=== PATIENT | female | born 1975 | race Caucasian/White ===

== ENCOUNTER 2016-07-12 19:00 | Emergency (ER) | payer MEDICAID ==
[~2016-07-12] VITALS: Ht 157.5 cm; Wt 126.1 kg
[~2016-07-12 19:00] MED LIST: CITA10TA7 PO; LISI-621 PO; METH-310 PO; METO50TA5 PO; PRED10TA PO; RANI150T7 PO
--- OUTSIDE RECORDS SUMMARY | 2016-07-12 19:03 | XMS REPORT | Referral Summary ---
Author Author [facility] Organization [facility]ay[facility]THERON [facility] Address Unknown Phone Unavailable Care Team Providers Care Black Off Worker Name Role Phone Carlos Kearns Primary Care Physician [phone] Encounter VC Date(s): 05/09/16 - 05/09/16 [facility] [address] [place] [id number]- Discharge Diagnosis: Conjunctivitis Discharge Disposition: 01-Home or Self Care Attending Physician: Steve Kearns MD Admitting Physician: Steve Kearns MD Vital Signs Most recent to 1 oldest [Reference Range]: Temperature Tympanic 36.8 degC [36.6-38.1 degC] (05/09/16 11:48 AM) Peripheral Pulse 80 bpm Rate [60-100 bpm] (05/09/16 11:48 AM) Respiratory Rate 18 br/min [14-20 br/min] (05/09/16 11:48 AM) Blood Pressure 134/70 mmHg [90-140/60-90 mmHg] (05/09/16 11:48 AM) SpO2 96 % (05/09/16 11:48 AM) Problem List Condition Effective Dates Status Health Status Informant Adult-onset Active obesity(Confirmed) Hematuria(Confirmed) Active Chronic low back Active pain(Confirmed) GERD Active (gastroesophageal reflux disease)(Confirmed) Diabetes, Resolved gestational(Confirme d) Hand pain, Active left(Confirmed) IV drug Active abuse(Confirmed) Mild major Active depression(Confirmed ) Patient is a Active currently breast-feeding mother(Confirmed) Elevated Resolved BP(Confirmed) Snoring(Confirmed) Active Tobacco Active patient user(Confirmed) Allergies, Adverse Reactions, Alerts No Known Allergies Medications albuterol CFC free 90 mcg/inh inhalation aerosol 2 puffs, Inhalation, q4hr, as needed for wheezing, # 8.5 g, 0 Refill(s), Pharmacy: [facility] [id number] Start Date: 04/26/16 Status: Ordered citalopram 10 mg oral tablet See Instructions, TAKE ONE TABLET BY MOUTH ONCE DAILY, # 30 tabs, 5 Refill(s), eRx: [facility] 2428 Start Date: 04/04/16 Status: Ordered lisinopril 20 mg oral tablet See Instructions, TAKE ONE TABLET BY MOUTH ONCE DAILY, # 30 tabs, 5 Refill(s), eRx: [facility] 2428 Start Date: 04/04/16 Status: Ordered Metoprolol Tartrate 50 mg oral tablet See Instructions, TAKE ONE TABLET BY MOUTH TWICE DAILY, # 60 tabs, 5 Refill(s), eRx: [facility] 2428 Start Date: 04/04/16 Status: Ordered Mirena 52 mg intrauteral device 52 mg 1 Each, IntraUteral, Once, # 1 Each, 0 Refill(s) Start Date: 01/20/15 Status: Ordered omeprazole 20 mg oral delayed release capsule See Instructions, TAKE ONE CAPSULE BY MOUTH ONCE DAILY, # 90 caps, 1 Refill(s), Pharmacy: [facility] [id number], TAKE ONE CAPSULE BY MOUTH ONCE DAILY Start Date: 04/26/16 Status: Ordered raNITIdine 150 mg oral tablet 150 mg 1 tabs, Oral, BID, # 180 tabs, 1 Refill(s), Pharmacy: [facility] [id number], 1 tabs Oral BID,x90 days Start Date: 03/22/16 Stop Date: 09/18/16 Status: Ordered TESTING TESTING, See Instructions, OVERNIGHT OXIMETRY DUE TO DAY TIME DROWINESS DX: R53.83, # 1 Each, 0 Refill(s) Start Date: 06/09/15 Status: Ordered Results No data available for this section Immunizations Given and Recorded Vaccine Date Status Refusal Reason influenza virus vaccine, inactivated 01/08/16 Given Procedures Procedure Date Related Diagnosis Body Site None Social History Social History Type Response Smoking Status Current some day smoker; Type: Cigarettes Assessment and Plan Extracted from: Title: Acute OV - Eye Discharge Author: Steve Kearns MD Date: Impression and Plan Diagnosis Conjunctivitis ([id number] H10.9, Discharge, Medical).
--- OUTSIDE RECORDS SUMMARY | 2016-07-12 19:03 | XMS REPORT | Continuity of Care Document ---
Author Author Organization Address Unknown Phone Unavailable Allergies Medications Problems Procedures Results Encounters ACCT No. Visit Date/Time Discharge Status Pt. Type Provider Facility Loc./Unit Complaint [id number] 10/12/2012 22:10:00 2012 00:08:00 DIS Emergency Janette RICCI, Eliseo Peñaloza W.EDS
--- OUTSIDE RECORDS SUMMARY | 2016-07-12 19:03 | XMS REPORT | Continuity of Care Document ---
Author Author [facility] Organization [facility] Address Unknown Phone Unavailable Care Team Providers Care Course Instructor Name Role Phone IGNACIO [place] MD Primary Care Physician [phone] Insurance Providers Guarantor Kailash,Elgin E Address [address] [place] [address] Email [email or web address] Payer [employer] [facility] Policy Number [id number] Subscriber's Name Elgin Olvera Relationship 18 Self Effective Date 16 Expiration Date 16 Advance Directives Directive Response Recorded Date/Time Advanced Directives Type None 03/21/16 7:33am Chief Complaint and Reason for Visit Chief Complaint Lower Extremity Pain Reason for Visit Low back pain Radiculopathy Problems Active Problems Medical Problem Onset Date Status Bleeding in early Unknown Acute Bleeding in early Unknown Acute Term , repeat Unknown Acute Past Problems Medical Problem Onset Date Low back pain Unknown Low back pain Unknown Radiculopathy Unknown Medications Current Home Medications Medication Dose Units Route Directions Days Qty Instructions Start Date Acetaminophen (Tylenol Extra Strength) 500 Mg Tablet 1-2 Tab Oral Every 6 Hours as needed for Pain/Fever 10/21/15 Hydrocodone/Acetaminophen ([place] 5-325 Tablet) 5-325 Tablet 1 Tab Oral Every 6 Hours as needed for Pain 10 Tablet 10/21/15 Meloxicam 7.5 Mg Tablet 7.5 Mg Oral Twice A Day 10/21/15 Methocarbamol (Robaxin-750) 750 Mg Tablet 750 Mg Oral Four Times Daily 40 Tablet Take 1 tablet, by mouth, 4 times a day. 03/21/16 Oxycodone Hcl/Acetaminophen (Oxycodone-Acetaminophen 5-325) 5-325 Tablet 1 Tab Oral Three Times A Day 10 Tablet 03/21/16 Prednisone 10 Mg Tablet 0 Oral Taper Qd 18 Tablet 30 mg daily x3 days 20 mg daily x3 days 10 mg daily x2 days 03/21/16 Social History Social History Problem Response Recorded Date/Time Onset Date Status Hx Substance Use Y in past 03/21/2016 7:44am Not Applicable Not Applicable Hx Alcohol Use No 03/21/2016 7:44am Not Applicable Not Applicable Has the pt used tobacco in the last 12 months No 09/11/2014 3:48pm Not Applicable Not Applicable Query Response Start Date Stop Date Smoking Status Light Smoker Hospital Discharge Instructions No hospital discharge instructions. Plan of Care Discharge Date 03/21/16 9:46am Disposition 01 DISCHARGED HOME, SELF-CARE Condition at Discharge Improved Prescriptions See Medication Section Referrals IGNACIO WELLINGTON MD Address: [address] [place] [address] [phone] Additional Instructions/Education Prednisone taper as directed. Robaxin up to 4 times daily for muscle spasms. Please see your primary care physician for follow-up and instruction. Functional Status No functional status results. Allergies, Adverse Reactions, Alerts No known allergies. Immunizations Query Response on File Recorded Date/Time Hx Influenza Vaccination Yes 09/11/14 3:48pm Hx Influenza Vaccination Yes 09/11/14 3:48pm Influenza Vaccine Hx UNKNOWN 03/21/16 7:44am Vital Signs Acute Vital Signs Vital Response Date/Time Temperature (Fahrenheit) 98.3 deg F (96.8 - 99.1) 03/21/2016 7:33am Temperature (Calculated Celsius) 36.47993 degrees C (36.0 - 37.3) 03/21/2016 7:33am Pulse Rate (adult) 62 bpm (60 - 100) 03/21/2016 9:44am Respiratory Rate 16 breaths/min (10 - 20) 03/21/2016 9:44am O2 Sat by Pulse Oximetry 97 % (90 - 100) 03/21/2016 9:44am Blood Pressure 117/69 mm Hg 03/21/2016 9:44am Height (Feet) 5 feet 03/21/2016 7:33am Height (Inches) 0 inches 03/21/2016 7:33am Weight (Kilograms) 120.400 kg 03/21/2016 7:33am Body Mass Index (BMI) 51.0 03/21/2016 7:33am Results Name: ELGIN OLVERA Unit #: [id number] : 1975 Sex: F Admit Date: Loc / Svc: ED Discharge Date: DIAGNOSTIC IMAGING REPORT Report #: [id number] [facility] [place] EXAM: LUMBAR SPINE 2-3 VIEWS LOCATION OF DICTATION: [place] HISTORY: ITS.REASON: radiculopathy, left COMPARISON: No prior studies available for comparison. FINDINGS: There is normal alignment to the lumbar spine with preservation of lumbar lordosis. There is no evidence for subluxation. There are no acute fractures. There is mild degenerative disease at the L5-S1 level. There is also suggested facet arthropathy at L5-S1 level. The surrounding soft tissues are within normal limits. IMPRESSION: 1. No evidence for malalignment or acute fracture. 2. Mild degenerative disease and facet arthropathy suggested at the L5-S1 level. There may be spinal stenosis at this level. MRI may be beneficial to further evaluate for disc pathology and/or central spinal/neuroforaminal stenosis if indicated. . Procedures No known history of procedures. Encounters Encounter Location Arrival/Admit Date Discharge/Depart Date Attending Provider Departed Emergency Room [facility] 03/21/16 7:31am 03/21/16 9: 46am HENRY MALDONADO MD Recent Diagnosis
--- OUTSIDE RECORDS SUMMARY | 2016-07-12 19:03 | XMS REPORT | Continuity of Care Document ---
Author Author [facility] Organization [facility] Address Unknown Phone Unavailable Care Team Providers Care Farmworker [employer] Name Role Phone GASTON PECK APRN Primary Care Physician [phone] Insurance Providers Payer Name Policy Number Subscriber Name Relationship Esteban [employer] [id number] Elgin Olvera 16 Self Problems Medical Problems Problem Onset Date Status Bleeding in early Unknown Active Medications Medication Dose Route Sig Days/Qty Instructions Order Date Discontinued Date Status Vit/Iron Fumarate/FA 1 Tab PO DAILY 02/22/14 Active Social History Social History Problem Response Recorded Date/Time Hx Alcohol Use No 02/22/2014 7:03pm Query Response Start Date Stop Date Smoking Status Current every day smoker Hospital Discharge Instructions No hospital discharge instructions. Plan of Care No plan of care. Functional Status Query Response Date Recorded Physical Hygiene Self February 22, 2014 7:03pm Disabilities None February 22, 2014 7:03pm Devices Used Glasses February 22, 2014 7:03pm Dressing Self February 22, 2014 7:03pm Ambulation Self February 22, 2014 7:03pm Diet Self February 22, 2014 7:03pm Mental Status Alert Oriented February 22, 2014 7:03pm Disabilities None February 22, 2014 7:03pm Devices Used Glasses February 22, 2014 7:03pm Physical Hygiene Self February 22, 2014 7:03pm Dressing Self February 22, 2014 7:03pm Ambulation Self February 22, 2014 7:03pm Diet Self February 22, 2014 7:03pm Allergies, Adverse Reactions, Alerts Allergen Type Severity Reaction Status Last Updated No Known Allergies Active 02/22/14 Immunizations No immunization records. Vital Signs Acute Vital Signs Vital Response Date/Time Temperature (Fahrenheit) 97.6 deg F (96.8 - 99.1) Temperature (Calculated Celsius) 36.54416 degrees C (36.0 - 37.3) Pulse Rate (adult) 96 bpm (60 - 100) Respiratory Rate 14 breaths/min (10 - 20) O2 Sat by Pulse Oximetry 97 % (90 - 100) Blood Pressure 139/84 mm Hg Height 5 ft 2 in Weight 239 lb Body Mass Index 43.0 kg/m^2 Results Test Source Date Result Interp. Ref. Range Comments Urine Bacteria February 22, 2014 5:35pm Trace H - Has specimen been collected/obtained? Y Urine Bilirubin February 22, 2014 5:35pm Negative - Has specimen been collected/obtained? Y Urine Blood February 22, 2014 5:35pm 3+ H - Has specimen been collected /obtained? Y Urine Collection Type February 22, 2014 5:35pm Voided-not cc-midstr - Has specimen been collected/obtained? Y Urine Color February 22, 2014 5:35pm Yellow - Has specimen been collected/obtained? Y Urine Glucose (UA) February 22, 2014 5:35pm Negative - Has specimen been collected/obtained? Y Urine Ketones February 22, 2014 5:35pm Negative - Has specimen been collected/obtained? Y Urine Leukocyte Esterase February 22, 2014 5:35pm Negative - Has specimen been collected/obtained? Y Urine Nitrite February 22, 2014 5:35pm Negative - Has specimen been collected/obtained? Y Urine Protein February 22, 2014 5:35pm Negative - Has specimen been collected/obtained? Y Urine RBC February 22, 2014 5:35pm 1-3 /HPF - Has specimen been collected/obtained? Y Urine Specific [place] February 22, 2014 5:35pm 1.020 - Has specimen been collected/obtained? Y Urine Squamous Epithelial Cells February 22, 2014 5:35pm 0-5 - Has specimen been collected/obtained? Y Urine Turbidity February 22, 2014 5:35pm Sl cloudy - Has specimen been collected/obtained? Y Urine Urobilinogen February 22, 2014 5:35pm 0.2 EU/DL - Has specimen been collected/obtained? Y Urine WBC February 22, 2014 5:35pm 0-1 /HPF - Has specimen been collected/obtained? Y Urine pH February 22, 2014 5:35pm 7.0 - Has specimen been collected/ obtained? Y Procedures No known history of procedures. Encounters Encounter Location Date/Time Departed Emergency Room [facility] 02/22/14 5:22pm Recent Diagnosis
--- OUTSIDE RECORDS SUMMARY | 2016-07-12 19:03 | XMS REPORT | Referral Summary ---
Author Author [facility] Organization [facility] Address Unknown Phone Unavailable Care Team Providers Care Geosciences Associate Professor Name Role Phone Carlos Kearns Primary Care Physician [phone] Encounter Date(s): 01/08/16 - 01/08/16 [facility] [address] [place] [id number] Discharge Diagnosis: High blood pressure Discharge Diagnosis: Back pain, chronic Discharge Diagnosis: Encounter for immunization Discharge Disposition: 01-Home or Self Care Attending Physician: Marco Antonio Garcia APRN Admitting Physician: Marco Antonio Garcia APRN Vital Signs Most recent to 1 oldest [Reference Range]: Temperature Tympanic 36.9 degC [36.6-38.1 degC] (01/08/16 8:56 AM) Peripheral Pulse 100 bpm Rate [60-100 bpm] (01/08/16 8:56 AM) Respiratory Rate 15 br/min [14-20 br/min] (01/08/16 8:56 AM) Blood Pressure 144/94 mmHg [90-140/60-90 mmHg] *HI* (01/08/16 8:56 AM) SpO2 98 % (01/08/16 8:56 AM) Problem List Condition Effective Dates Status Health Status Informant Adult-onset Active obesity(Confirmed) Hematuria(Confirmed) Active Chronic low back Active pain(Confirmed) GERD Active (gastroesophageal reflux disease)(Confirmed) Diabetes, Active gestational(Confirme d) Hand pain, Active left(Confirmed) IV drug Active abuse(Confirmed) Patient is a Active currently breast-feeding mother(Confirmed) Elevated Active BP(Confirmed) Snoring(Confirmed) Active Tobacco Active patient user(Confirmed) Allergies, Adverse Reactions, Alerts No Known Allergies Medications cyclobenzaprine 10 mg oral tablet See Instructions, TAKE ONE TABLET BY MOUTH TWICE DAILY NEEDED FOR SPASM, # 60 tabs, eRx: [facility], TAKE ONE TABLET BY MOUTH TWICE DAILY NEEDED FOR SPASM Start Date: 12/31/15 Status: Ordered Mirena 52 mg intrauteral device 52 mg 1 Each, IntraUteral, Once, # 1 Each, 0 Refill(s) Start Date: 01/20/15 Status: Ordered Mobic 7.5 mg oral tablet 7.5 mg 1 tabs, Oral, BID, back pain, # 60 tabs, 2 Refill(s), Pharmacy: [facility], 1 tabs Oral BID,PRN:back pain Start Date: 10/12/15 Status: Ordered PriLOSEC 20 mg oral delayed release capsule 20 mg 1 caps, Oral, Daily, # 90 caps, 0 Refill(s), Pharmacy: [facility] 2428, 1 caps Oral Daily Start Date: 10/29/15 Status: Ordered ranitidine 150 mg oral tablet See Instructions, TAKE ONE TABLET BY MOUTH TWICE DAILY, # 60 tabs, eRx: [facility], TAKE ONE TABLET BY MOUTH TWICE DAILY Start Date: 12/07/15 Status: Ordered TESTING TESTING, See Instructions, OVERNIGHT OXIMETRY DUE TO DAY TIME DROWINESS DX: R53.83, # 1 Each, 0 Refill(s) Start Date: 06/09/15 Status: Ordered Results Hematology Most recent to 1 oldest [Reference Range]: WBC [4.8-10.8 8.3 10*3/uL 10*3/uL] (01/08/16 10:20 AM) RBC [4.00-5.20] 4.84 (01/08/16 10:20 AM) Hgb [12.0-16.0 13.7 gm/dL gm/dL] (01/08/16 10:20 AM) Hct [37.0-47.0 %] 40.4 % (01/08/16 10:20 AM) MCV [82.0-99.0 fL] 83.5 fL (01/08/16 10:20 AM) MCH [27.0-32.0 pg] 28.3 pg (01/08/16 10:20 AM) MCHC [32.0-36.0 33.9 gm/dL gm/dL] (01/08/16 10:20 AM) RDW [11.5-14.5 %] 14.9 % *HI* (01/08/16 10:20 AM) Platelet [150-400 347 10*3/uL 10*3/uL] (01/08/16 10:20 AM) MPV [8.8-14.8 fL] 8.8 fL (01/08/16 10:20 AM) Immature 0.5 % Granulocytes (01/08/16 10:20 AM) [0.0-1.0 %] Neutrophils [51-75 62 % %] (01/08/16 10:20 AM) Lymphocytes [20-46 26 % %] (01/08/16 10:20 AM) Monocytes [4-11 %] 8 % (01/08/16 10:20 AM) Eosinophils [0-4 %] 3 % (01/08/16 10: AM) Basophils [0-2 %] 0 % (01/08/16 10:20 AM) Neutro Absolute 5.12 10*3 [1.90-7.00 10*3] (01/08/16 10:20 AM) Lymph Absolute 2.17 10*3 [0.80-3.30 10*3] (01/08/16 10:20 AM) Lucas Absolute 0.68 10*3 [0.30-1.00 10*3] (01/08/16 10:20 AM) Eos Absolute 0.22 10*3 [0.00-0.50 10*3] (01/08/16 10:20 AM) Baso Absolute 0.03 10*3 [0.00-0.20 10*3] (01/08/16 10:20 AM) Chemistry Most recent to 1 oldest [Reference Range]: Sodium Lvl [135-144 137 mEq/L mEq/L] (01/08/16 10:20 AM) Potassium Lvl 4.3 mEq/L [3.5-5.2 mEq/L] (01/08/16 10:20 AM) Chloride [99-111 105 mEq/L mEq/L] (01/08/16 10:20 AM) CO2 [22-31 mEq/L] 20 mEq/L *LOW* (01/08/16 10:20 AM) AGAP [3-20] 12 (01/08/16 10:20 AM) BUN [7-19 mg/dL] 19 mg/dL (01/08/16 10:20 AM) Glucose Lvl [70-99 96 mg/dL mg/dL] (01/08/16 10:20 AM) Creatinine Lvl 0.59 mg/dL [0.57-1.11 mg/dL] (01/08/16 10:20 AM) eGFR [>60 mL/min] >60 mL/min 1 (01/08/16 10:20 AM) Calcium Lvl 9.5 mg/dL [8.9-10.5 mg/dL] (01/08/16 10:20 AM) TSH with Reflex Free 2.89 T4 [0.35-4.94] (01/08/16 10:20 AM) 1Result Comment: Multiply eGFR results by 1.21 for race. Immunizations Vaccine Date Refusal Reason influenza virus vaccine, inactivated 01/08/16 Procedures No data available for this section Social History Social History Type Response Smoking Status Current some day smoker; Type: Cigarettes Assessment and Plan No data available for this section
--- OUTSIDE RECORDS SUMMARY | 2016-07-12 19:03 | XMS REPORT | Referral Summary ---
Author Author [facility] [place], [facility] Care Organization [facility] Address Unknown Phone Unavailable Care Team Providers Care Angle Roll Operator Name Role Phone Carlos Kearns Primary Care Physician [phone] Encounter VC Date(s): 03/17/16 - 03/17/16 [facility] [place] [address] [place] [id number]- Discharge Diagnosis: Mild headache Discharge Diagnosis: Acute URI Discharge Disposition: 01-Home or Self Care Attending Physician: Valentino Hu PA-C Admitting Physician: Valentino Hu PA-C Vital Signs Most recent to 1 oldest [Reference Range]: Temperature Tympanic 36.8 degC [36.6-38.1 degC] (03/17/16 5:31 PM) Peripheral Pulse 103 bpm Rate [60-100 bpm] *HI* (03/17/16 5:31 PM) Blood Pressure 122/78 mmHg [90-140/60-90 mmHg] (03/17/16 5:31 PM) SpO2 98 % (03/17/16 5:31 PM) Problem List Condition Effective Dates Status Health Status Informant Adult-onset Active obesity(Confirmed) Hematuria(Confirmed) Active Chronic low back Active pain(Confirmed) GERD Active (gastroesophageal reflux disease)(Confirmed) Diabetes, Active gestational(Confirme d) Hand pain, Active left(Confirmed) IV drug Active abuse(Confirmed) Patient is a Active currently breast-feeding mother(Confirmed) Elevated Active BP(Confirmed) Snoring(Confirmed) Active Tobacco Active patient user(Confirmed) Allergies, Adverse Reactions, Alerts No Known Allergies Medications citalopram 10 mg oral tablet 10 mg 1 tabs, Oral, Daily, # 30 tabs, 0 Refill(s), Pharmacy: [id number], 1 tabs Oral Daily Start Date: 03/04/16 Status: Ordered lisinopril 20 mg oral tablet 20 mg 1 tabs, Oral, Daily, # 30 tabs, 0 Refill(s), Pharmacy: [id number] Start Date: 03/04/16 Status: Ordered Metoprolol Tartrate 50 mg oral tablet See Instructions, TAKE ONE TABLET BY MOUTH TWICE DAILY, # 60 tabs, eRx: [id number] Start Date: 03/07/16 Status: Ordered Mirena 52 mg intrauteral device 52 mg 1 Each, IntraUteral, Once, # 1 Each, 0 Refill(s) Start Date: 01/20/15 Status: Ordered omeprazole 20 mg oral delayed release capsule See Instructions, TAKE ONE CAPSULE BY MOUTH ONCE DAILY, # 90 caps, eRx: [id number], TAKE ONE CAPSULE BY MOUTH ONCE DAILY Start Date: 01/25/16 Status: Ordered PriLOSEC 20 mg oral delayed release capsule 20 mg 1 caps, Oral, Daily, # 90 caps, 0 Refill(s), Pharmacy: [id number], 1 caps Oral Daily Start Date: 10/29/15 Status: Ordered raNITIdine 150 mg oral tablet 150 mg 1 tabs, Oral, BID, NEW PATIENT APPT MAR [address] KEARNS, # 180 tabs, 0 Refill(s), Pharmacy: [id number], 1 tabs Oral BID,x90 days,Instr: NEW PATIENT APPT MAR [address] KEARNS Start Date: 02/23/16 Stop Date: 05/23/16 Status: Ordered TESTING TESTING, See Instructions, OVERNIGHT [...] Cigarettes Assessment and Plan Extracted from: Title: Ambulatory Patient Education Author: Valentino Hu PA-C Date: 03/17/16 Musculoskeletal Biceps Tendon Tendinitis (Distal) With Rehab Tendinitis involves inflammation and pain over the affected tendon. The distal biceps tendon (near the elbow) is vulnerable to tendinitis. Distal biceps tendonitis is usually due to the bony bump near the elbow (bicipital tuberosity ) causing increased friction over the tendon. The biceps tendon attaches the biceps muscle to one bone in the elbow and two in the shoulder. It is important for proper function of the elbow and for turning the palm upward (supination). SYMPTOMS Pain, aching, tenderness, and sometimes warmth or redness over the front of the elbow. Pain when bending the elbow or turning the palm up, using the wrist, especially if performed against resistance. Crackling sound (crepitation) when the tendon or elbow is moved or touched. CAUSES The symptoms of biceps tendonitis are due to inflammation of the tendon. Inflammation may be caused by: Strain from sudden increase in amount or intensity of activity. Direct blow or injury to the elbow (uncommon). Overuse or repetitive elbow bending or wrist rotation, particularly when turning the palm up, or with elbow hyperextension. RISK INCREASES WITH: Sports that involve contact or overhead arm activity (throwing sports, gymnastics, weightlifting, bodybuilding, rock climbing). Heavy labor. Poor strength and flexibility. Failure to warm up properly before activity. Injury to other structures of the elbow. Restraint of the elbow. PREVENTION Warm up and stretch properly before activity. Allow time for recovery between activities. Maintain physical fitness: Strength, flexibility, and endurance. Cardiovascular fitness. Learn and use proper exercise technique. PROGNOSIS With proper treatment, biceps tendon tendonitis is usually curable within 6 weeks. RELATED COMPLICATIONS Longer healing time if not properly treated or if not given enough time to heal. Chronically inflamed tendon that causes persistent pain with activity, that may progress to constant pain and potentially rupture of the tendon. Recurring symptoms, especially if activity is resumed too soon, with overuse or with poor technique. TREATMENT Treatment first involves ice and medicine to reduce pain and inflammation. Modify activities that cause pain, to reduce the chances of causing the condition to get worse. Strengthening and stretching exercises should be performed to promote proper use of the muscles of the elbow. These exercise may be performed at home or with a therapist. Other treatments may be given such as ultrasound or heat therapy. Surgery is usually not recommended. MEDICATION If pain medicine is needed, nonsteroidal anti-inflammatory medicines ( aspirin and ibuprofen), or other minor pain relievers (acetaminophen), are often advised. Do not take pain relieving medication for 7 days before surgery. Prescription pain relievers may be given if your caregiver thinks they are needed. Use only as directed and only as much as you need. HEAT AND COLD: Cold treatment (icing) should be applied for 10 to 15 minutes every 2 to 3 hours for inflammation and pain, and immediately after activity that aggravates your symptoms. Use ice packs or an ice massage. Heat treatment may be used before performing stretching and strengthening activities prescribed by your caregiver, physical therapist, or maintenance mechanic helper. Use a heat pack or a warm water soak. SEEK MEDICAL CARE IF: Symptoms get worse or do not improve in 2 weeks, despite treatment. New, unexplained symptoms develop. (Drugs used in treatment may produce side effects.) EXERCISES RANGE OF MOTION (ROM) AND STRETCHING EXERCISES - Biceps Tendon Tendinitis ( Distal) These exercises may help you when beginning to rehabilitate your injury. Your symptoms may go away with or without further involvement from your physician, physical therapist, or maintenance mechanic helper. While completing these exercises, remember: Restoring tissue flexibility helps normal motion to return to the joints. This allows healthier, less painful movement and activity. An effective stretch should be held for at least 30 seconds. A stretch should never be painful. You should only feel a gentle lengthening or release in the stretched tissue. STRETCH Elbow Flexors Lie on a firm bed or countertop on your back. Be sure that you are in a comfortable position which will allow you to relax your arm muscles. Place a folded towel under your right / left upper arm, so that your elbow and shoulder are at the same height. Extend your arm; your elbow should not rest on the bed or towel. Allow the weight of your hand to straighten your elbow. Keep your arm and chest muscles relaxed. Your flute polisher may ask you to increase the intensity of your stretch by adding a small wrist or hand weight. Hold for seconds. You should feel a stretch on the inside of your elbow. Slowly return to the starting position. Repeat times. Complete this exercise times per day. RANGE OF MOTION Supination, Active Stand or sit with your elbows at your side. Bend your right / left elbow to 90 degrees. Turn your palm upward until you feel a gentle stretch on the inside of your forearm. Hold this position for seconds. Slowly release and return to the starting position. Repeat times. Complete this stretch times per day. RANGE OF MOTION Pronation, Active Stand or sit with your elbows at your side. Bend your right / left elbow to 90 degrees. Turn your palm downward until you feel a gentle stretch on the top of your forearm. Hold this position for seconds. Slowly release and return to the starting position. Repeat times. Complete this stretch times per day. STRENGTHENING EXERCISES - Biceps Tendon Tendinitis (Distal) These exercises may help you when beginning to rehabilitate your injury. They may resolve your symptoms with or without further involvement from your physician, physical therapist or maintenance mechanic helper. While completing these exercises, remember: Muscles can gain both the endurance and the strength needed for everyday activities through controlled exercises. Complete these exercises as instructed by your physician, physical therapist or maintenance mechanic helper. Increase the resistance and repetitions only as guided. You may experience muscle soreness or fatigue, but the pain or discomfort you are trying to eliminate should never get worse during these exercises. If this pain does get worse, stop and make sure you are following the directions exactly. If the pain is still present after adjustments, discontinue the exercise until you can discuss the trouble with your clinician. STRENGTH - Elbow Flexors, Isometric Stand or sit upright on a firm surface. Place your right / left arm so that your hand is palm-up and at the height of your waist. Place your opposite hand on top of your forearm. Gently push down as your right / left arm resists. Push as hard as you can with both arms without causing any pain or movement at your right / left elbow. Hold this stationary position for seconds. Gradually release the tension in both arms. Allow your muscles to relax completely before repeating. Repeat times. Complete this exercise times per day. STRENGTH Forearm Supinators Sit with your right / left forearm supported on a table, keeping your elbow below shoulder height. Rest your hand over the edge, palm down. Gently truck railroad and bus motor mechanic a hammer or a soup ladle. Without moving your elbow, slowly turn your palm and hand upward to a "thumbs-up" position. Hold this position for seconds. Slowly return to the starting position. Repeat times. Complete this exercise times per day. STRENGTH Forearm Pronators Sit with your right / left forearm supported on a table, keeping your elbow below shoulder height. Rest your hand over the edge, palm up. Gently truck railroad and bus motor mechanic a hammer or a soup ladle. Without moving your elbow, slowly turn your palm and hand upward to a "thumbs-up" position. Hold this position for seconds. Slowly return to the starting position. Repeat times. Complete this exercise times per day. STRENGTH Elbow Flexors, Supinated With good posture, stand or sit on a firm chair without armrests. Allow your right / left arm to rest at your side with your palm facing forward. Holding a weight, or gripping a rubber exercise band or tubing , bring your hand toward your shoulder. Allow your muscles to control the resistance as your hand returns to your side. Repeat times. Complete this exercise times per day. STRENGTH Elbow Flexors, Neutral With good posture, stand or sit on a firm chair without armrests. Allow your right / left arm to rest at your side with your thumb facing forward. Holding a weight, or gripping a rubber exercise band or tubing , bring your hand toward your shoulder. Allow your muscles to control the resistance as your hand returns to your side. Repeat times. Complete this exercise times per day. This information is not intended to replace advice given to you by your health care provider. Make sure you discuss any questions you have with your health care provider. Document Released: 03/06/2006 Document Revised: 03/27/2015 Document Reviewed: [employer] Patient Education 2016 [employer] Biceps Tendon Tendinitis (Proximal) and Tenosynovitis With Rehab Tendonitis and tenosynovitis involve inflammation of the tendon and the tendon lining (sheath). The proximal biceps tendon is vulnerable to tendonitis and tenosynovitis, which causes pain and discomfort in the front of the shoulder and upper arm. The tendon lining secretes a fluid that helps lubricate the tendon, allowing for proper function without pain. When the tendon and its lining become inflamed, the tendon can no longer glide smoothly, causing pain. The proximal biceps tendon connects the biceps muscle to two bones of the shoulder. It is important for proper function of the elbow and turning the palm upward (supination) using the wrist. Proximal biceps tendon tendinitis may include a grade 1 or 2 strain of the tendon. Grade 1 strains involve a slight pull of the tendon without signs of tearing and no observed tendon lengthening. There is also no loss of strength. Grade 2 strains involve small tears in the tendon fibers. The tendon or muscle is stretched and strength is usually decreased. SYMPTOMS Pain, tenderness, swelling, warmth, or redness over the front of the shoulder. Pain that gets worse with shoulder and elbow use, especially against resistance. Limited motion of the shoulder or elbow. Crackling sound (crepitation) when the tendon or shoulder is moved or touched. CAUSES The symptoms of biceps tendonitis are due to inflammation of the tendon. Inflammation may be caused by: Strain from sudden increase in amount or intensity of activity. Direct blow or injury to the elbow (uncommon). Overuse or repetitive elbow bending or wrist rotation, particularly when turning the palm up, or with elbow hyperextension. RISK INCREASES WITH: Sports that involve contact or overhead arm activity (throwing sports, gymnastics, weightlifting, bodybuilding, rock climbing). Heavy labor. Poor strength and flexibility. Failure to warm up properly before activity. PREVENTION Warm up and stretch properly before activity. Allow time for recovery between activities. Maintain physical fitness: Strength, flexibility, and endurance. Cardiovascular fitness. Learn and use proper exercise technique. PROGNOSIS With proper treatment, proximal biceps tendon tendonitis and tenosynovitis is usually curable within 6 weeks. Healing is usually quicker if the cause was a direct blow, not overuse. RELATED COMPLICATIONS Longer healing time if not properly treated or if not given enough time to heal. Chronically inflamed tendon that causes persistent pain with activity, that may progress to constant pain and potentially rupture of the tendon. Recurring symptoms, especially if activity is resumed too soon or with overuse, a direct blow, or use of poor exercise technique. TREATMENT Treatment first involves ice and medicine, to reduce pain and inflammation. It is helpful to modify activities that cause pain, to reduce the chances of causing the condition to get worse. Strengthening and stretching exercises should be performed to promote proper use of the muscles of the shoulder. These exercises may be performed at home or with a therapist. Other treatments may be given such as ultrasound or heat therapy. A corticosteroid injection may be recommended to help reduce inflammation of the tendon lining. Surgery is usually not necessary. Sometimes, if symptoms last for greater than 6 months, surgery will be advised to detach the tendon and re-insert it into the arm bone. Surgery to correct other shoulder problems that may be contributing to tendinitis may be advised before surgery for the tendinitis itself. MEDICATION If pain medicine is needed, nonsteroidal anti-inflammatory medicines ( aspirin and ibuprofen), or other minor pain relievers (acetaminophen), are often advised. Do not take pain medicine for 7 days before surgery. Prescription pain relievers may be given if your caregiver thinks they are needed. Use only as directed and only as much as you need. Corticosteroid injections may be given. These injections should only be used on the most severe cases, as one can only receive a limited number of them. HEAT AND COLD Cold treatment (icing) should be applied for 10 to 15 minutes every 2 to 3 hours for inflammation and pain, and immediately after activity that aggravates your symptoms. Use ice packs or an ice massage. Heat treatment may be used before performing stretching and strengthening activities prescribed by your caregiver, physical therapist, or maintenance mechanic helper. Use a heat pack or a warm water soak. SEEK MEDICAL CARE IF: Symptoms get worse or do not improve in 2 weeks, despite treatment. New, unexplained symptoms develop. (Drugs used in treatment may produce side effects.) EXERCISES RANGE OF MOTION (ROM) AND EXERCISES - Biceps Tendon (Proximal) and Tenosynovitis These exercises may help you when beginning to rehabilitate your injury. Your symptoms may go away with or without further involvement from your physician, physical therapist, or maintenance mechanic helper. While completing these exercises, remember: Restoring tissue flexibility helps normal motion to return to the joints. This allows healthier, less painful movement and activity. An effective stretch should be held for at least 30 seconds. A stretch should never be painful. You should only feel a gentle lengthening or release in the stretched tissue. STRETCH Flexion, Standing Stand with good posture. With an underhand truck railroad and bus motor mechanic on your right / left hand and an overhand truck railroad and bus motor mechanic on the opposite hand, grasp a broomstick or cane so that your hands are a little more than shoulder width apart. Keeping your right / left elbow straight and shoulder muscles relaxed, push the stick with your opposite hand to raise your right / left arm in front of your body and then overhead. Raise your arm until you feel a stretch in your right / left shoulder, but before you have increased shoulder pain. Try to avoid shrugging your right / left shoulder as your arm rises, by keeping your shoulder blade tucked down and toward your mid-back spine. Hold for seconds. Slowly return to the starting position. Repeat times. Complete this exercise times per day. STRETCH Abduction, Supine Lie on your back. With an underhand truck railroad and bus motor mechanic on your right / left hand and an overhand truck railroad and bus motor mechanic on the opposite hand, grasp a broomstick or cane so that your hands are a little more than shoulder width apart. Keeping your right / left elbow straight and shoulder muscles relaxed, push the stick with your opposite hand to raise your right / left arm out to the side of your body and then overhead. Raise your arm until you feel a stretch in your right / left shoulder, but before you have increased shoulder pain. Try to avoid shrugging your right / left shoulder as your arm rises, by keeping your shoulder blade tucked down and toward your mid-back spine. Hold for seconds. Slowly return to the starting position. Repeat times. Complete this exercise times per day. ROM Flexion, Active-Assisted Lie on your back. You may bend your knees for comfort. Grasp a broomstick or cane so your hands are about shoulder width apart. Your right / left hand should truck railroad and bus motor mechanic the end of the stick so that your hand is positioned "thumbs-up," as if you were about to shake hands. Using your healthy arm to lead, raise your right / left arm overhead until you feel a gentle stretch in your shoulder. Hold for seconds. Use the stick to assist in returning your right / left arm to its starting position. Repeat times. Complete this exercise times per day. STRETCH Flexion, Standing Stand facing a wall. Walk your right / left fingers up the wall until you feel a moderate stretch in your shoulder. As your hand gets higher, you may need to step closer to the wall or use a door frame to walk through. Try to avoid shrugging your right / left shoulder as your arm rises, by keeping your shoulder blade tucked down and toward your mid-back spine. Hold for seconds. Use your other hand, if needed, to ease out of the stretch and return to the starting position. Repeat times. Complete this exercise times per day. ROM - Internal Rotation Using underhand lime slaker, grasp a stick behind your back with both hands. While standing upright with good posture, slide the stick up your back until you feel a mild stretch in the front of your shoulder. Hold for seconds. Slowly return to your starting position. Repeat times. Complete this exercise times per day. STRETCH - Internal Rotation Place your right / left hand behind your back, palm-up. Throw a towel or belt over your opposite shoulder. Grasp the towel with your right / left hand. While keeping an upright posture, gently pull up on the towel until you feel a stretch in the front of your right / left shoulder. Avoid shrugging your right / left shoulder as your arm rises, by keeping your shoulder blade tucked down and toward your mid-back spine. Hold for seconds. Release the stretch by lowering your opposite hand. Repeat times. Complete this exercise times per day. STRENGTHENING EXERCISES - Biceps Tendon Tendinitis (Proximal) and Tenosynovitis These exercises may help you regain your strength after your physician has discontinued your restraint in a cast or brace. They may resolve your symptoms with or without further involvement from your physician, physical therapist or maintenance mechanic helper. While completing these exercises, remember: Muscles can gain both the endurance and the strength needed for everyday activities through controlled exercises. Complete these exercises as instructed by your physician, physical therapist or maintenance mechanic helper. Increase the resistance and repetitions only as guided. You may experience muscle soreness or fatigue, but the pain or discomfort you are trying to eliminate should never worsen during these exercises. If this pain does get worse, stop and make sure you are following the directions exactly. If the pain is still present after adjustments, discontinue the exercise until you can discuss the trouble with your caregiver. STRENGTH - Elbow Flexors, Isometric Stand or sit upright on a firm surface. Place your right / left arm so that your hand is palm-up and at the height of your waist. Place your opposite hand on top of your forearm. Gently push down as your right / left arm resists. Push as hard as you can with both arms, without causing any pain or movement at your right / left elbow. Hold this stationary position for seconds. Gradually release the tension in both arms. Allow your muscles to relax completely before repeating. Repeat times. Complete this exercise times per day. STRENGTH - Shoulder Flexion, Isometric With good posture and facing a wall, stand or sit about 4-6 inches away. Keeping your right / left elbow straight, gently press the top of your fist into the wall. Increase the pressure gradually until you are pressing as hard as you can, without shrugging your shoulder or increasing any shoulder discomfort. Hold for seconds. Release the tension slowly. Relax your shoulder muscles completely before you start the next repetition. Repeat times. Complete this exercise times per day. STRENGTH Elbow Flexors, Supinated With good posture, stand or sit on a firm chair without armrests. Allow your right / left arm to rest at your side with your palm facing forward. Holding a weight, or gripping a rubber exercise band or tubing , bring your hand toward your shoulder. Allow your muscles to control the resistance as your hand returns to your side. Repeat times. Complete this exercise times per day. STRENGTH - Shoulder Flexion Stand or sit with good posture. Grasp a weight, or an exercise band or tubing, so that your hand is "thumbs-up," like when you shake hands. Slowly lift your right / left arm as far as you can, without increasing any shoulder pain. At first, many people can only raise their hand to shoulder height. Avoid shrugging your right / left shoulder as your arm rises, by keeping your shoulder blade tucked down and toward your mid-back spine. Hold for seconds. Control the descent of your hand as you slowly return to your starting position. Repeat times. Complete this exercise times per day. This information is not intended to replace advice given to you by your health care provider. Make sure you discuss any questions you have with your health care provider. Document Released: 03/06/2006 Document Revised: 03/27/2015 Document Reviewed: Elsevier Interactive Patient Education 2016 Elsevier Inc. No follow up information was provided.
--- OUTSIDE RECORDS SUMMARY | 2016-07-12 19:03 | XMS REPORT | Referral Summary ---
Author Author [facility] Organization [facility] Address Unknown Phone Unavailable Care Team Providers Care Events And Promotions Assistant Name Role Phone Carlos Kearns Primary Care Physician [phone] Encounter Date(s): 04/04/16 - 04/04/16 [facility] [address] [place] [id number] Discharge Diagnosis: Benign essential hypertension Discharge Diagnosis: Chronic low back pain Discharge Diagnosis: Prediabetes Discharge Diagnosis: Radicular syndrome of left leg Discharge Diagnosis: Adult-onset obesity Discharge Diagnosis: Heart palpitations Discharge Diagnosis: Mild major depression Discharge Disposition: 01-Home or Self Care Attending Physician: Steve Kearns MD Admitting Physician: Steve Kearns MD Vital Signs Most recent to 1 oldest [Reference Range]: Peripheral Pulse 89 bpm Rate [60-100 bpm] (04/04/16 11:18 AM) Blood Pressure 110/80 mmHg [90-140/60-90 mmHg] (04/04/16 11:18 AM) Problem List Condition Effective Dates Status [...] Allergies Medications citalopram 10 mg oral tablet See Instructions, TAKE ONE TABLET BY MOUTH ONCE DAILY, # 30 tabs, 5 Refill(s), eRx: [facility] Start Date: 04/04/16 Status: Ordered lisinopril 20 mg oral tablet See Instructions, TAKE ONE TABLET BY MOUTH ONCE DAILY, # 30 tabs, 5 Refill(s), eRx: [facility] Start Date: 04/04/16 Status: Ordered Metoprolol Tartrate 50 mg oral tablet See Instructions, TAKE ONE TABLET BY MOUTH TWICE DAILY, # 60 tabs, 5 Refill(s), eRx: [facility] Start Date: 04/04/16 Status: Ordered Mirena 52 mg intrauteral device 52 mg 1 Each, IntraUteral, Once, # 1 Each, 0 Refill(s) Start Date: 01/20/15 Status: Ordered omeprazole 20 mg oral delayed release capsule See Instructions, TAKE ONE CAPSULE BY MOUTH ONCE DAILY, # 90 caps, eRx: [facility], TAKE ONE CAPSULE BY MOUTH ONCE DAILY Start Date: 01/25/16 Status: Ordered raNITIdine 150 mg oral tablet 150 mg 1 tabs, Oral, BID, # 180 tabs, 1 Refill(s), Pharmacy: [facility], 1 tabs Oral BID,x90 days Start Date: [...] Cigarettes Assessment and Plan Extracted from: Title: 1 Month CDM Author: Steve Kearns MD Date: 04/04/16 Impression and Plan Diagnosis Chronic low back pain (QKX36-VK M54.5, Discharge, Medical). Prediabetes (XSK99-RX R73.03, Discharge, Medical). Radicular syndrome of left leg (RVU19-YJ M54.10, Discharge, Medical). Mild major depression (XWZ51-GE F32.0, Discharge, Medical). Adult-onset obesity (JCC78-LB E66.9, Discharge, Medical). Benign essential hypertension (KYV47-JO I10, Discharge, Medical). Heart palpitations (EWN79-WY R00.2, Discharge, Medical).
--- OUTSIDE RECORDS SUMMARY | 2016-07-12 19:03 | XMS REPORT | Referral Summary ---
Author Author [facility] Organization [facility] Address Unknown Phone Unavailable Care Team Providers Care Film Color Tester Name Role Phone Carlos Kearns Primary Care Physician [phone] Encounter VC Date(s): 04/26/16 - 04/26/16 [facility] [address] [place] [id number] Discharge Diagnosis: Wheezy bronchitis Discharge Diagnosis: Tobacco user Discharge Disposition: 01-Home or Self Care Attending Physician: Steve Kearns MD Admitting Physician: Steve Kearns MD Vital Signs Most recent to 1 oldest [Reference Range]: Temperature Tympanic 36.8 degC [36.6-38.1 degC] (04/26/16 1:24 PM) Blood Pressure 130/84 mmHg [90-140/60-90 mmHg] (04/26/16 1:24 PM) Problem List Condition Effective Dates Status [...] wheezing, # 8.5 g, 0 Refill(s), Pharmacy: [facility] Start Date: 04/26/16 Status: Ordered citalopram 10 mg oral tablet See Instructions, TAKE ONE TABLET BY MOUTH ONCE DAILY, # 30 tabs, 5 Refill(s), [facility]Rx: [facility] Start Date: 04/04/16 Status: Ordered lisinopril 20 mg oral tablet See Instructions, TAKE ONE TABLET BY MOUTH ONCE DAILY, # 30 tabs, 5 Refill(s), eRx: [facility]28 Start Date: 04/04/16 Status: Ordered Metoprolol Tartrate 50 mg oral tablet See Instructions, TAKE ONE TABLET BY MOUTH TWICE DAILY, # 60 tabs, 5 Refill(s), eRx: [facility] 2428 Start Date: 04/04/16 Status: Ordered Mirena 52 mg intrauteral device 52 mg 1 Each, IntraUteral, Once, # 1 Each, 0 Refill(s) Start Date: 01/20/15 Status: Ordered omeprazole 20 mg oral delayed release capsule See Instructions, TAKE ONE CAPSULE BY MOUTH ONCE DAILY, # 90 caps, 1 Refill(s), Pharmacy: [place] [facility] [id number], TAKE ONE CAPSULE BY MOUTH ONCE DAILY Start Date: 04/26/16 Status: Ordered raNITIdine 150 mg oral tablet 150 mg 1 tabs, Oral, BID, # 180 tabs, 1 Refill(s), Pharmacy: [place] [facility] [id number], 1 tabs Oral BID,x90 days Start Date: [...] Assessment and Plan Extracted from: Title: Acute OV-Cough Author: Steve Kearns MD Date: 04/26/16 Impression and Plan Diagnosis Tobacco user (RKL09-ZN Z72.0, Discharge, Medical). Wheezy bronchitis (ZXC92-[id number] J40, Discharge, Medical). Orders Orders (Selected) Prescriptions Prescribed albuterol CFC free 90 mcg/inh inhalation aerosol: 2 puffs, Inhalation, q4hr, PRN : as needed for wheezing, 8.5 g, 0 Refill(s).
--- OUTSIDE RECORDS SUMMARY | 2016-07-12 19:04 | XMS REPORT | Referral Summary ---
Author Author [facility] Organization [facility] Address Unknown Phone Unavailable Care Team Providers Care Resourcing Consultant Name Role Phone Carlos Kearns Primary Care Physician [phone] Encounter VC Date(s): 05/12/16 - 05/12/16 [facility] [address] [place] [id number]- Discharge Diagnosis: Conjunctivitis Discharge Diagnosis: Pharyngitis Discharge Disposition: 01-Home or Self Care Attending Physician: Steve Kearns MD Admitting Physician: Steve Kearns MD Vital Signs Most recent to 1 oldest [Reference Range]: Temperature Oral 36.9 degC [35.8-37.3 degC] (05/12/16 11:26 AM) Peripheral Pulse 98 bpm Rate [60-100 bpm] (05/12/16 11:26 AM) Respiratory Rate 18 br/min [14-20 br/min] (05/12/16 11:26 AM) Blood Pressure 132/86 mmHg [90-140/60-90 mmHg] (05/12/16 11:26 AM) Problem List Condition Effective Dates Status [...] wheezing, # 8.5 g, 0 Refill(s), Pharmacy: [facility] Start Date: 04/26/16 Status: Ordered citalopram 10 mg oral tablet See Instructions, TAKE ONE TABLET BY MOUTH ONCE DAILY, # 30 tabs, 5 Refill(s), eRx: [facility] 2428 Start Date: 04/04/16 Status: Ordered lisinopril 20 mg oral tablet See Instructions, TAKE ONE TABLET BY MOUTH ONCE DAILY, # 30 tabs, 5 Refill(s), eRx: [facility] 2428 Start Date: 04/04/16 Status: Ordered Metoprolol Tartrate 50 mg oral tablet See Instructions, TAKE ONE TABLET BY MOUTH TWICE DAILY, # 60 tabs, 5 Refill(s), eRx: [facility] 2428 Start Date: 04/04/16 Status: Ordered Mirena 52 mg intrauteral device 52 mg 1 Each, IntraUteral, Once, # 1 Each, 0 Refill(s) Start Date: 01/20/15 Status: Ordered omeprazole 20 mg oral delayed release capsule See Instructions, TAKE ONE CAPSULE BY MOUTH ONCE DAILY, # 90 caps, 1 Refill(s), Pharmacy: [facility] [id number], TAKE ONE CAPSULE BY MOUTH ONCE DAILY Start Date: 04/26/16 Status: Ordered raNITIdine 150 mg oral tablet 150 mg 1 tabs, Oral, BID, # 180 tabs, 1 Refill(s), Pharmacy: [facility] [address], 1 tabs Oral BID,x90 days Start Date: 03/22/16 Stop Date: 09/18/16 Status: Ordered sulfacetamide sodium 10% ophthalmic solution 1 drops, Eye-Both, QID, X 10 days, # 15 mL, 0 Refill(s), Pharmacy: [facility] [address] Start Date: 05/12/16 Stop Date: 05/22/16 Status: Ordered TESTING TESTING, See Instructions, OVERNIGHT [...] and Plan Extracted from: Title: Acute OV Author: Steve Kearns MD Date: 05/12/16 Impression and Plan Diagnosis Conjunctivitis (HBY95-VI H10.9, Discharge, Medical). Pharyngitis (IXD20-LP J02.9, Discharge, Medical). Sore throat (NMI40-XH J02.9, Working, Medical). Orders Orders (Selected) Outpatient Orders InProcess (In Process) Rapid Strep: Prescriptions Prescribed sulfacetamide sodium 10% ophthalmic solution: 1 drops, Eye-Both, QID, for 10 days, 15 mL, 0 Refill(s).
[2016-07-12 19:19] VITALS: TEMP 98.1; Ht 157.5 cm; Wt 126.1 kg
--- NOTE | 2016-07-12 19:25 | NUR ---
WAITING ROOM PATIENT SENT BACK TO WAITING ROOM, INSTRUCTED TO NOTIFY REGISTRATION IF ANY SIGNIFICANT WORSENING IN CONDITION.
--- NOTE | 2016-07-12 20:33 | ERPDOC ---
Departure Disposition Decision Date: Jul 12, 2016 Disposition Decision Time: 21:18 (ANNEARLNEISHARobert Pantoja APRN) Disposition: 01 DISCHARGED HOME, SELF-CARE Impression Impression (ANNEARLNEISHARobert Pantoja APRN) Impression: Primary Impression: Rib pain on right side Severity: Moderate (ANNAMELIA ELLIOTT APRN) Condition: Stable Seen By: Mid-level only (AMELIA TREVIÑO APRN) Referrals: IGNACIO KEARNS MD (PCP) Patient Instructions: Rib Fracture (ED) Problems/Meds/Labs Reviewed?: Yes Medications reviewed and manag: Yes (AMELIA TREVIÑO APRN) Additional Instructions: I want you to take the Renovo tonight as needed for pain. May use the promethazine with codeine cough syrup as needed for cough tomorrow. Please follow up with Dr Kearns or your stock blender for further workup for the cough or pain. Follow up care ordered?: Yes Mental Status: Alert (AMELIA TREVIÑO APRN) Scripts Hydrocodone/Acetaminophen (Renovo 5-325 Tablet) 5-325 Tablet 1 TAB PO Q6H Y for PAIN, #10 TAB 0 Refills Prov: ANNEARLNEISHARobert Pantoja APRN 07/12/16 Promethazine HCl/Codeine (Prometh-Codein 6.25-10 mg/5 ml) 5 Ml Syrup 5 ML PO Q6HPRN Y for COUGH, #120 ML 0 Refills Prov: NEISHA TREVIÑORobert Pantoja APRN 07/12/16 HPI - Cough/URI General Chief Complaint: Cough,Fever,Flu,URI Stated Complaint: COUGH, PAINFUL RIBS Time Seen by Provider: 20:27 Source: patient Exam Limitations: no limitations (ANNAMLEIA ELLIOTT APRN) Time Seen by Provider: 20:27 (BARBARA VENEGAS DO) HPI - Cough/URI Initial Comments She presents to Er today for evaluation of right rib pain. She has had a cough for the last few months and it has gotten worse recently. She did see a stock blender last week and was taken off of her Lisinopril and her inhaled corticosteroid dose increased to 2 puffs twice daily. She will follow up with him in a month. She coughed a few days ago and had increased pain in the right anterior lower ribs at that time. Pain is worse with cough and in one spot only. Has been taking some Delsym at home for the cough. Occurred At: home Onset/Timing: Gradual Duration: other (Over the last few days) Prior Episodes/Possible Cause: occasional episodes Associated Symptoms: chest pain/soreness (right lower anterior ribs) (NOLD, AMELIA N SCAFFOLD BUILDER) Allergies: Coded Allergies: No Known Allergies (Unverified , 07/12/16) Past History Past Medical History Psychological: drug abuse (NOLD,AMELIA N SCAFFOLD BUILDER) Surgical History Denies Surgeries (NOLD,AMELIA N SCAFFOLD BUILDER) Family History Family History: Negative (NOLD,AMELIA N SCAFFOLD BUILDER) Vaccines Hx Influenza Vaccination: Yes (NOLD,AMELIA N SCAFFOLD BUILDER) Social History Smoking Status: Never smoker Substance Use Type: does not use Alcohol Intake: none Sexuality: male partner (NOLD,AMELIA N SCAFFOLD BUILDER) Review of Systems Constitutional Constitutional: DENIES: chills, dizziness, fatigue, fever, weakness (NOLD, AMELIA N SCAFFOLD BUILDER) Cardiovascular Cardiac: chest pain, DENIES: dyspnea on exertion, orthopnea Rhythm/Rate: DENIES: irregular beat, palpitations Vascular: DENIES: pedal edema, unilateral swelling (NOLD,AMELIA N SCAFFOLD BUILDER) Pulmonary Respiratory: DENIES: cough, dyspnea, sputum, tachypnea (NOLD,AMELIA N SCAFFOLD BUILDER) GI Upper Abdomen: DENIES: nausea, pain, vomiting Lower Abdomen: DENIES: constipation, diarrhea, pain (NOLD,AMELIA N SCAFFOLD BUILDER) Neurological General: DENIES: headache, numbness, tingling, weakness (NOLD,AMELIA N SCAFFOLD BUILDER) Physical Exam General General Nourishment: well nourished, well developed, appears stated age, no acute distress, adult General Body Habitus: well groomed (NOLD,AMELIA N SCAFFOLD BUILDER) Vitals and Pain First Documented Vital Signs Date Time Temp Pulse Resp B/P Pulse Ox O2 Delivery O2 Flow Rate FiO2 07/12/16 19:19 98.1 73 19 168/98 94 Room Air (JULY,BARBARA M DO) Vitals and Pain Weight: Kilograms: 126.100 Height (feet): 5 Height (inches): 2.00 Triage Pain Scale: (NOLD,AMELIA N SCAFFOLD BUILDER) RN VS reviewed by Provider: Yes (AMELIA TREVIÑO APRN) Normal Exams: Neck: Full range of motion, without adenopathy, JVD, bruits or thyromegaly Chest/Resp: Clear all ceja, with good airflow, and symmetry bilaterally CV: Regular rate and rhythm, without murmur or gallop, Pulses 2+ all extremities, capillary refill, <2 seconds all ext., no pedal edema noted Abdomen: Bowel sounds positive, soft, non-tender, non-distended, no hepatosplenomegaly, masses or bruits noted Lymphatic: No lymphadenopathy, or lymphedema noted Integumentary: No rashes, hives, or bruising noted Neurologic: Patient is alert, and oriented Psychiatric: Patient exhibits, appropriate attention, emotion and affect (AMELIA TREVIÑO APRN) Respiratory (brief) Respiratory: FOUND: tenderness (TTP on the right anterior lower ribs at the line of the bra line. There is point tenderness here but no crepitus or subcutaneous emphysema noted.) (AMELIA TREVIÑO APRN) Differential Diagnoses Differential Diagnoses Considering: Asthma Exacerbation, COPD Exacerbation, Other (Pneumonia, rib contusion, rib fracture) (AMELIA TREVIÑO APRN) Progress Results/Orders Orders Procedure Category Date Status Time Ribs Right With Ap RAD 07/12/16 Taken Chest Hydrocodone/Apap PHA 07/12/16 Complete 5/325 Prepack (Renovo 5 21:30 Amlodipine (Norvasc) PHA 07/12/16 Complete 22:00 () Medications Current ED Medications Acetaminophen/ Hydrocodone Bitart (NORCO 5 (PrePack)) 1 pack O ONCE SENT HOME Last administered on 07/12/16 21:47; Start 07/12/16 at 21:30; Stop 07/12/16 at 21:31; Status DC Amlodipine Besylate (Norvasc) 5 mg O ONCE PO Last administered on 07/12/16 21 :58; Start 07/12/16 at 22:00; Stop 07/12/16 at 22:01; Status DC () Medications Current ED Medications Acetaminophen/ Hydrocodone Bitart (NORCO 5 (PrePack)) 1 pack O ONCE SENT HOME ; Start 4/25/17 at 21:30; Stop 07/12/16 at 21:31 (AMELIA TREVIÑO APRN) Progress Progress Take the Renovo for pain as needed. Will have her try some Promethazine with Codeine cough syrup for the cough but did advise that she not use both as they may over sedate. Will have her follow up with her PCP or stock blender as needed. (AMELIA TREVIÑO APRN) Xray Xray : Reason for Exam: right rib pain Xray: Ribs R Interpretation: Normal (possible 10th rib fracture) (AMELIA TREVIÑO APRN) AMELIA TREVIÑO APRN Jul 12, 2016 20:33 JULY,ABRBARA Weber DO Jul 13, 2016 01:56
--- NOTE | 2016-07-12 20:45 | NUR ---
XRAY PATIENT TO RADIOLOGY PER WC FOR CXR, STABLE.
--- OUTSIDE RECORDS SUMMARY | 2016-07-12 20:45 | XMS REPORT | Continuity of Care Document ---
Author Author [facility] Organization [facility] Address Unknown Phone Unavailable Care Team Providers Care Seam Rubbing Machine Operator Name Role Phone GASTON PECK APRN Primary Care Physician [phone] Insurance Providers Payer Name Policy Number Subscriber Name Relationship Esteban [employer] [id number] Elgin Olvera 16 Self Problems Medical Problems [...] F (96.8 - 99.1) Temperature (Calculated Celsius) 36.75096 degrees C (36.0 - 37.3) Pulse Rate [...] Has specimen been collected/obtained? Y Urine Specific [place] February 22, 2014 5:35pm 1.020 - Has [...] Encounters Encounter Location Date/Time Departed Emergency Room [facility] 02/22/14 5:22pm Recent Diagnosis
--- OUTSIDE RECORDS SUMMARY | 2016-07-12 20:45 | XMS REPORT | Continuity of Care Document ---
Author Author [facility] Organization [facility] Address Unknown Phone Unavailable Allergies Medications Problems Procedures Results Encounters ACCT No. Visit Date/Time Discharge Status Pt. Type Provider Facility Loc./Unit Complaint [id number] 10/12/2012 22:10:00 2012 00:08:00 DIS Emergency Janette RICCI, Eliseo Peñaloza [facility] W.EDS
--- NOTE | 2016-07-12 20:57 | NUR ---
REPORT REPORT GIVEN TO Hayden PATHAK RN
--- NOTE | 2016-07-12 20:58 | NUR ---
RETURN PATIENT BACK FROM RADIOLOGY PER WC
[2016-07-12] MEDS ORDERED: OMEP20CA10 PO (20:59)
[2016-07-12] MEDS ORDERED: ALBU18HF2 INH (20:59)
[2016-07-12] MEDS ORDERED: BUPR150T8 PO (20:59)
[2016-07-12] MEDS ORDERED: BECL8.7A5 ORAL INH (21:00)
[2016-07-12] MEDS ORDERED: DEXT30SU4 PO (21:00)
[2016-07-12] MEDS ORDERED: CETI-269 PO (21:00)
[2016-07-12] MEDS ORDERED: PROM5SYR PO (21:20)
[2016-07-12] MEDS ORDERED: HYDR-4246 PO (21:23)
[2016-07-12] MEDS ORDERED: HYDROCODONE/APAP 5/325 (PrePack) SENT HOME ONE (21:30)
--- NOTE | 2016-07-12 21:47 | NUR ---
STATUS DISCHARGE INSTRUCTIONS ARE REVIEWED WITH PT. PROVIDER IS NOTIFIED OF PT BP 179/101, ONE TIME ORDER FOR NORVASC 5 MG IS PLACED.
[2016-07-12 21:58] VITALS: BP 179/101; PULSE 71; RESP 18; O2SAT 95
--- NOTE | 2016-07-12 21:58 | NUR ---
DEPART PT LEAVES AMBULATORY WITH HER DAUGHTER AT THIS TIME.
[2016-07-12] MEDS ORDERED: AMLODIPINE 5 MG TABLET PO ONE (22:00)
--- NOTE | 2016-07-13 07:51 | DI ---
Indication: ITS.REASON: right rib pain PROCEDURE: RIBS RIGHT WITH AP CHEST: Encounter: Initial Comparison: None FINDINGS: Chest: The lungs are clear. There is no abnormal airspace opacity, pleural effusion or pneumothorax identified. The heart size, pulmonary vasculature and mediastinum are within normal limits. AP and oblique views of the right ribs: No displaced rib fracture is seen. IMPRESSION: No acute cardiopulmonary abnormality. .
== END 2016-07-12 21:58 | disposition home or self-care (01) ==
LOC: ED 19:00
DX: R07.81 Pleurodynia (principal); R05 Cough